=== PATIENT | male | born 1990 | race African-American/Black ===

== ENCOUNTER 2024-09-12 21:58 | Emergency (ER) | payer SELFPAY ==
[2024-09-12 22:10] VITALS: BP 123/90; PULSE 65; RESP 18; TEMP 98.1; BMI 30.7
[2024-09-12] MEDS ORDERED: TETRACAINE 0.5% OPHTH SOLN 2 ML BOTTLE ONE (22:52)
[2024-09-12] MEDS ORDERED: FLUORESCEIN NA 1 EA STRIP ONE (22:52)
[2024-09-12] MEDS ORDERED: TOBRA 0.3%/DEXAMETH 0.1% OPHTHALMIC SUSP 2.5 ML BTL ONE (23:10)
[2024-09-12] MEDS ORDERED: CEPHALEXIN MONOHYDRATE 500 MG CAPSULE (UD) ONE (23:10)
[2024-09-12] MEDS: TOBRA 0.3%/DEXAMETH 0.1% OPHTHALMIC SUSP 2.5 ML BTL OS STA (23:14)
[2024-09-12] MEDS: CEPHALEXIN MONOHYDRATE 500 MG CAPSULE (UD) PO ONE (23:16)
== END 2024-09-12 23:16 | disposition home or self-care (01) ==
LOC: FER 21:58
DX: H10.32 Unspecified acute conjunctivitis, left eye (principal)
CPT/HCPCS: 99283-25